=== PATIENT | male | born 1930 | race Caucasian/White ===

== ENCOUNTER 2019-09-24 20:17 | Emergency (ER) | payer OTHER ==
[~2019-09-24] VITALS: Ht 175.3 cm; Wt 100.7 kg
[2019-09-24 20:17] VITALS: BP_SYST 111
[2019-09-24 21:39] LABS: BILIRUBIN,URINE NEGATIVE (NEGATIVE); BLOOD, URINE 3+ (NEGATIVE); GLUCOSE,URINE NEGATIVE (NEGATIVE); KETONES,URINE NEGATIVE (NEGATIVE); LEUKOCYTE ESTERASE ,URINE TRACE (NEGATIVE); NITRITE, URINE NEGATIVE (NEGATIVE); PH,URINE 5.5 (5.0-8.0); PROTEIN URINE 2+ (NEGATIVE)
[2019-09-24 21:41] LABS: COLOR,URINE BROWN (YELLOW)
[2019-09-24 21:42] LABS: CLARITY/URINE TURBID (CLEAR)
[2019-09-24 22:11] LABS: BACTERIA,URINE MANY /HPF (None Seen); RBC,URINE >100 /HPF (0-3); WBC,URINE 50-80 /HPF (0-3)
[2019-09-24] MEDS ORDERED: MAG355OR21 PO (23:01)
[2019-09-24] MEDS ORDERED: FURO-149 PO (23:01)
[2019-09-24] MEDS ORDERED: GLUC1KIT IM (23:01)
[2019-09-24] MEDS ORDERED: MOM PO (23:01)
[2019-09-24] MEDS ORDERED: FLEETMO RC (23:01)
[2019-09-24] MEDS ORDERED: LOVA40TA75 PO (23:01)
[2019-09-24] MEDS ORDERED: PROC10TA13 PO (23:01)
[2019-09-24] MEDS ORDERED: METO50TA7 PO (23:01)
[2019-09-24] MEDS ORDERED: INSU100V SQ (23:01)
[2019-09-24] MEDS ORDERED: POTA10TA15 PO (23:01)
[2019-09-24] MEDS ORDERED: FINA5TAB3 PO (23:01)
[2019-09-24] MEDS ORDERED: ACET-2634 PO (23:01)
[2019-09-24] MEDS ORDERED: ACET325T53 PO (23:01)
[2019-09-24] MEDS ORDERED: INSU100V9 SQ (23:01)
[2019-09-24] MEDS ORDERED: ARIP5TAB10 PO (23:01)
[2019-09-24] MEDS ORDERED: IBUP-1968 PO (23:01)
[2019-09-24] MEDS ORDERED: LEVO25TA2 PO (23:01)
[2019-09-24] MEDS ORDERED: CARV3.1246 PO (23:01)
[2019-09-24] MEDS ORDERED: TAMS-11 PO (23:01)
[2019-09-24] MEDS ORDERED: ONDA4VIA52 PO (23:01)
[2019-09-24] MEDS ORDERED: LEVO75TA7 PO (23:01)
[2019-09-24] MEDS ORDERED: LORA-258 PO (23:01)
[2019-09-24] MEDS ORDERED: MULT-1117 PO (23:01)
[2019-09-24] MEDS ORDERED: DILT180C67 PO (23:01)
[2019-09-24] MEDS ORDERED: DEXT37.52 PO (23:01)
[2019-09-24] MEDS ORDERED: FOLI-43 PO (23:01)
[2019-09-24] MEDS ORDERED: PRO40 PO (23:01)
[2019-09-24] MEDS ORDERED: ZOLP5TAB2 PO (23:01)
[2019-09-25] MEDS ORDERED: AZITHROMYCIN 250 MG TABLET PO ONE
[2019-09-25 00:21] VITALS: BP_SYST 131
== END 2019-09-24 23:43 | disposition home or self-care (01) ==
LOC: SED 20:17
DX: K31.89 Other diseases of stomach and duodenum (principal); R19.07 Generalized intra-abdominal and pelvic swelling, mass and lump; Z79.899 Other long term (current) drug therapy; Z88.5 Allergy status to narcotic agent
CPT/HCPCS: 81000-TC; 87086; 99284; Q0144